=== PATIENT | female | born 1995 | race Caucasian/White ===

== ENCOUNTER 2022-12-15 01:36 | Inpatient (IN) | payer OTHER ==
[~2022-12-15] VITALS: Ht 162.6 cm; Wt 90.7 kg
[2022-12-15] MEDS ORDERED: FAMOTIDINE 20 MG/2 ML VIAL IV STA (02:02)
[2022-12-15] MEDS ORDERED: KETOROLAC TROMETHAMINE 30 MG/ML VIAL IV STA (02:02)
[2022-12-15] MEDS ORDERED: ONDANSETRON HCL INJ 2MG/ML 2ML 2 MG/ML VIAL IV STA (02:02)
[2022-12-15] MEDS ORDERED: MAGNESIUM/ALUMINUM/SIMETHICONE 30 ML UDC PO ONE (02:15)
[2022-12-15] MEDS ORDERED: BELLADONNA ALK/PHENOBARBITAL 5 ML UDC PO ONE (02:15)
[2022-12-15] MEDS ORDERED: LIDOCAINE VISC 2% SOLN 15 ML UDC PO ONE (02:15)
[2022-12-15] MEDS ORDERED: SODIUM CHLORIDE 0.9% 500ML 500 ML IV ONE (02:30)
[2022-12-15] MEDS ORDERED: BELLADONNA ALK/PHENOBARBITAL 5 ML UDC ONE (02:38)
[2022-12-15] MEDS ORDERED: LIDOCAINE VISC 2% SOLN 15 ML UDC ONE (02:38)
[2022-12-15] MEDS ORDERED: ONDANSETRON HCL INJ 2MG/ML 2ML 2 MG/ML VIAL ONE ×2 (02:38→15:28)
[2022-12-15] MEDS ORDERED: MAGNESIUM/ALUMINUM/SIMETHICONE 30 ML UDC ONE (02:39)
[2022-12-15] MEDS ORDERED: KETOROLAC TROMETHAMINE 30 MG/ML VIAL ONE ×2 (02:39→15:28)
[2022-12-15] MEDS ORDERED: FAMOTIDINE 20 MG/2 ML VIAL IV ONE (02:39)
[2022-12-15] MEDS ORDERED: SODIUM CHLORIDE 0.9% 500ML 500 ML ONE (02:39)
[2022-12-15] MEDS ORDERED: PIPERACILLIN/TAZOBACTAM 3.375 GM VIAL ONE (03:26)
[2022-12-15] MEDS ORDERED: ONDANSETRON HCL INJ 2MG/ML 2ML 2 MG/ML VIAL IV PRN ×2 (03:30→03:45)
[2022-12-15] MEDS ORDERED: Morphine 4mg INJECTION 4 MG/ML INJ IV PRN ×2 (03:45→11:00)
[2022-12-15] MEDS: SODIUM CHLORIDE 0.9% 1000ML 1,000 ML IV SCH ×3 (04:22→20:20)
[2022-12-15] MEDS ORDERED: BUPIVACAINE 0.25% 30ML SDV ONE (10:06)
[2022-12-15] MEDS ORDERED: ACETAMINOPHEN 325 MG TAB PO PRN (11:00)
[2022-12-15 11:49] VITALS: BP 116/76; PULSE 60; RESP 20; TEMP 98.2; O2SAT 100
[2022-12-15 12:00] VITALS: BP 116/76; PULSE 60; RESP 20; TEMP 98.2; O2SAT 100
[2022-12-15] MEDS ORDERED: FENTANYL CITRATE/PF 100MCG/2 ML INJ ONE (13:52)
[2022-12-15] MEDS ORDERED: MIDAZOLAM HCL 2 MG/2 ML VIAL ONE (13:52)
[2022-12-15 15:27] VITALS: BP 113/73; PULSE 64; RESP 17; TEMP 98.4; O2SAT 100
[2022-12-15] MEDS ORDERED: PROPOFOL IV EMULSION 10 MG/ML 20 ML VIAL ONE (15:28)
[2022-12-15] MEDS ORDERED: ROCURONIUM BROMIDE 10 MG/ML 5ML VIAL IV ONE (15:28)
[2022-12-15] MEDS ORDERED: LIDOCAINE HCL 2% LOCAL INJ 5 ML SDV VIAL INJ ONE (15:28)
[2022-12-15] MEDS ORDERED: POVIDONE IODINE 0.05% 0.05 % ML PO ONE (15:28)
[2022-12-15] MEDS: HYDROCODONE/APAP 5MG-325MG TAB PO PRN ×2 (16:34→20:21)
[2022-12-15 19:57] VITALS: BP 119/81; PULSE 73; RESP 17; TEMP 98; O2SAT 99
[2022-12-15 20:08] VITALS: BP 119/81; PULSE 73; RESP 17; TEMP 98; O2SAT 99
[2022-12-16 00:21] VITALS: BP 108/82; PULSE 89; RESP 17; TEMP 97.8; O2SAT 97
[2022-12-16] MEDS: SODIUM CHLORIDE 0.9% 1000ML 1,000 ML IV SCH (03:58)
[2022-12-16 05:49] VITALS: BP 117/86; PULSE 65; RESP 17; TEMP 97.9; O2SAT 99
[2022-12-16 06:53] LABS: BASOPHILS % 0.1 % (0.0-1.0); EOSINOPHILS # (AUTO) 0.1 (0.0-0.4); EOSINOPHILS % 1.5 % (0.0-6.0); HEMATOCRIT 31.5 % (34.2-44.1); HEMOGLOBIN 10.3 g/dL (12.0-16.0); LYMPHOCYTES # (AUTO) 1.9 (1.0-3.2); LYMPHOCYTES % 28.7 % (18.0-39.1); MEAN CORPUSCULAR HEMOGLOBIN 28.6 pg (28-32); MEAN CORPUSCULAR HGB CONC 32.7 g/dL (31-35); MEAN CORPUSCULAR VOLUME 87.5 fL (81-99); MONOCYTES # (AUTO) 0.4 (0.2-0.8); MONOCYTES % 6.5 % (4.4-11.3); NEUTROPHILS # (AUTO) 4.3 (2.1-6.9); NEUTROPHILS % 63.1 % (38.7-80.0); PLATELET COUNT 213 x10e3/uL (140-360); RED CELL DISTRIBUTION WIDTH 12.6 % (11.7-14.4)
[2022-12-16 07:13] LABS: ALBUMIN 2.9 g/dL (3.5-5.0); ALBUMIN/GLOBULIN RATIO 1.2 (0.8-2.0); CALCIUM 7.7 mg/dL (8.4-10.2); CREATININE, SERUM 0.75 mg/dL (0.57-1.11)
[2022-12-16 07:45] VITALS: BP 116/88; PULSE 77; RESP 18; TEMP 97.8; O2SAT 99
[2022-12-16 08:00] VITALS: BP 116/88; PULSE 77; RESP 18; TEMP 97.8; O2SAT 99
[2022-12-16] MEDS ORDERED: ULTRAM 50MG50 MG PO (09:30)
[2022-12-16 11:00] VITALS: BP 124/82; PULSE 76; RESP 18; TEMP 97.5; O2SAT 100
== END 2022-12-16 13:06 | disposition home or self-care (01) | DRG 343 ==
LOC: FSED 01:44 → ERHOLD 03:33 → MED/SURG 11:33
PROVIDERS: ADMIT Internal Medicine; ATTEND Internal Medicine
PROC: 0DTJ4ZZ Resection of Appendix, Percutaneous Endoscopic Approach (ICD-10-PCS; principal; 2022-12-15 10:10)
DX: K35.80 Unspecified acute appendicitis (principal); D72.829 Elevated white blood cell count, unspecified; Z20.822 Contact with and (suspected) exposure to COVID-19; Z59.6 Low income
CPT/HCPCS: 36415; 74176; 80048; 80053; 80076; 81003; 81025; 85025; 88304; 96374; 96375; 96376; 99284; J1885; J2001; J2250; J2270; J2405; J2543; J7030; J7040